=== PATIENT | female | born 1965 | race Hispanic/Latino ===

== ENCOUNTER 2024-03-22 12:19 | Emergency (ER) | payer OTHER ==
[~2024-03-22] VITALS: Ht 160 cm; Wt 83.9 kg
[2024-03-22 13:15] VITALS: TEMP 98.8
[2024-03-22] MEDS ORDERED: MECLIZINE HCL12.5 MG PO (13:34)
[2024-03-22 15:15] VITALS: PULSE 71; RESP 18; O2SAT 96
== END 2024-03-22 15:15 | disposition home or self-care (01) ==
LOC: FSED 12:32
DX: H81.11 Benign paroxysmal vertigo, right ear (principal); R53.1 Weakness
CPT/HCPCS: 70450; 80053; 81003; 85025; 93005; 99284